=== PATIENT | female | born 1990 | race Caucasian/White ===

== ENCOUNTER → 2018-10-16 11:18 | Outpatient (CLI) | payer BC, OTHER, SELFPAY ==
[2018-10-16 11:40] LABS: Basophils % 0.1 % (0.1-2.0); Eosinophils % 0.5 % (0.1-12.0); Hematocrit 35.1 % (37.0-47.0); Hemoglobin 11.8 g/dL (12.2-16.2); Lymphocytes # 1.5 K/mm3 (0.7-4.5); Lymphocytes % 18.8 % (10-50); Mean Corpuscular HGB Conc 33.6 g/dL (31.8-35.4); Mean Corpuscular Hemoglobin 28.1 pg (27.0-31.2); Mean Corpuscular Volume 83.5 fl (81-99); Monocytes # 0.3 K/mm3 (0.1-1.0); Monocytes % 3.5 % (1.7-9.3); Neutrophils # 6.3 K/mm3 (1.8-7.8); Platelet Count 178 K/mm3 (142-424); Red Cell Distribution Width 14.4 % (11.5-17.5); White Blood Count 8.2 K/mm3 (4.8-10.8)
[2018-10-17 07:46] LABS: Hepatitis B Surface Antigen Negative (Negative); Hepatitis C Antibody <0.1 s/co ratio (0.0-0.9)
[2018-10-18 07:47] LABS: HIV Screen 4th Generation wRfx Non Reactive (Non Reactive); Rapid Plasma Reagin Ab Titer Non Reactive (NonRea<1:1); Rubella Antibodies, IgG <0.90 index (Immune >0.99)
== END ==
PROVIDERS: Visit Provider Nurse Practitioner Obstetrics & Gynecology
DX: Z34.90 Encounter for supervision of normal pregnancy, unspecified, unspecified trimester (principal)
CPT/HCPCS: 36415; 85025; 86592; 86703; 86762; 86850; 87340; 87380; G0432

== ENCOUNTER → 2018-10-24 13:49 | Outpatient (CLI) | payer BC, OTHER, SELFPAY ==
--- NOTE | 2018-10-24 13:55 | US_ITS ---
US OB transvaginal HISTORY: ITS.REASON: US OB Dates ORDERING PHYSICIAN: Ryan Spears MD PATIENT AGE: 28 years COMPARISON: None FINDINGS: An intrauterine gestational sac is present with a pole with a crown-rump length of 2.08cm correlating to gestational age of 8w5d. heart tones are present with an FHR of 154 bpm's. Yolk sac is noted. Adnexa: 1 cm left ovarian cyst. Small bilateral ovarian follicles. IMPRESSION: Live intrauterine gestation at 8 weeks 5 days as described above. Estimated due date by Ultrasound is 05/31/2019
== END ==
PROVIDERS: Visit Provider Nurse Practitioner Obstetrics & Gynecology
DX: O26.841 Uterine size-date discrepancy, first trimester (principal)
CPT/HCPCS: 76817

== ENCOUNTER → 2019-01-10 12:56 | Outpatient (CLI) | payer BC, OTHER, SELFPAY ==
--- NOTE | 2019-01-10 13:05 | US_ITS ---
US OB /maternal detail: INDICATION: ITS.REASON: US OB Complete ORDERING PHYSICIAN: Ryan Spears MD PATIENT AGE: 28 years TECHNIQUE: ultrasound transabdominal scanning. COMPARISON: No previous relevant studies. FINDINGS: Single viable intrauterine gestation. Cephalic position. Placenta: Anterior High placenta grade 1. There is average amount fluid. The cervix appears satisfactory. Closed and measuring 5 cm in length. Complete survey performed and was unremarkable on the submitted images as in PACS. No discrete anomalies identified on survey imaging by technologist. Active fetus. Three-vessel cord with satisfactory umbilical cord insertion. 4- chamber heart noted. Survey of brain & ventricles unremarkable. Face and neck survey unremarkable. Diaphragm and chest views unremarkable. Abdomen: Both kidneys noted and unremarkable. Stomach noted and satisfactory. Spine: Survey of the spine satisfactory with no anomalies identified nor imaged. Both arms and legs noted. Amniotic Fluid: Adequate. Maternal adnexa: No significant findings. Measurements: Average ultrasound age 20w0d. Gestational Age 19w6d. Estimated due date by ultrasound age 0905/30/2019. Estimated weight 321 grams. BPD = 20w0d OFD = 20w4d HC = 19w4d AC = 19w6d FL = 20w2d Growth Percentile= 29% Heart Rate = 152 Cerebellum = 20w3d Humerus = 20w5d HC/AC is 1.18 (1.09-1.26). CI is 75% (70-86%). FL/BPD is 71%. FL/AC is 23%. IMPRESSION: There is a single live fetus which is in cephalic presentation. Average ultrasound age is 20 weeks 0 days. All parameters correlate. heart motion noted with no obvious anomalies. Please see above for details
== END ==
PROVIDERS: Visit Provider Nurse Practitioner Obstetrics & Gynecology
DX: Z36.0 Encounter for antenatal screening for chromosomal anomalies (principal)
CPT/HCPCS: 76811

== ENCOUNTER → 2019-02-21 08:11 | Outpatient (CLI) | payer BC, OTHER, SELFPAY ==
[2019-02-21 09:23] LABS: Glucose,Fasting 103 mg/dL (60-105)
[2019-02-21 10:28] LABS: Glucose 1 Hour 154 mg/dL (74-106)
== END ==
PROVIDERS: Visit Provider Nurse Practitioner Obstetrics & Gynecology
DX: Z34.90 Encounter for supervision of normal pregnancy, unspecified, unspecified trimester (principal)
CPT/HCPCS: 36415; 82951

== ENCOUNTER → 2019-03-06 07:26 | Outpatient (CLI) | payer BC, OTHER, SELFPAY ==
[2019-03-06 09:08] LABS: Glucose,Fasting 91 mg/dL (60-105)
[2019-03-06 10:10] LABS: Glucose 1 Hour 111 mg/dL (74-106)
[2019-03-06 10:11] LABS: Glucose 2 Hour 114 mg/dL (74-106)
[2019-03-06 11:14] LABS: Glucose 3 Hour 85 mg/dL (74-106)
== END ==
PROVIDERS: Visit Provider Nurse Practitioner Obstetrics & Gynecology
DX: Z34.90 Encounter for supervision of normal pregnancy, unspecified, unspecified trimester (principal)
CPT/HCPCS: 36415; 82951

== ENCOUNTER → 2019-03-21 11:13 | Outpatient (CLI) | payer BC, OTHER, SELFPAY ==
[2019-03-22 13:06] LABS: Creatinine,Serum 0.51 mg/dL (0.55-1.02)
[2019-03-22 13:11] LABS: Creatinine,Serum 0.51 mg/dL (0.55-1.02)
[2019-03-22 13:12] LABS: Collection Time,Urine 24 hours; Creatinine 24 Hour,Urine 1053 mg/24hr (630-2500); Creatinine,Urine Random 81 mg/dL (20-320); Patient Height,Urine 62 inches; Patient Weight,Urine 181 lbs; Total Protein 24 Hour,Urine 148 mg/24 hr (40-90); Total Protein,Urine Random 11.4 mg/dL (0.0-11.9); Total Volume,Urine 1300 mL (600-1600)
== END ==
PROVIDERS: Visit Provider Nurse Practitioner Obstetrics & Gynecology
DX: O13.9 Gestational [pregnancy-induced] hypertension without significant proteinuria, unspecified trimester (principal); Z34.90 Encounter for supervision of normal pregnancy, unspecified, unspecified trimester
CPT/HCPCS: 82575; 84155

== ENCOUNTER → 2019-03-22 11:17 | Outpatient (CLI) | payer BC, OTHER, SELFPAY ==
[2019-03-22 11:38] LABS: Basophils % 0.2 % (0.1-2.0); Eosinophils # 0.1 K/mm3 (0.0-0.4); Hematocrit 29.4 % (37.0-47.0); Hemoglobin 9.5 g/dL (12.2-16.2); Lymphocytes # 1.2 K/mm3 (0.7-4.5); Lymphocytes % 18.5 % (10-50); Mean Corpuscular HGB Conc 32.2 g/dL (31.8-35.4); Mean Corpuscular Volume 83.9 fl (81-99); Mean Platelet Volume 9.7 fl (7.4-10.4); Monocytes # 0.3 K/mm3 (0.1-1.0); Monocytes % 3.9 % (1.7-9.3); Neutrophils % 76.4 % (37.0-80.0); Platelet Count 182 K/mm3 (142-424); Red Blood Count 3.51 M/mm3 (4.20-5.40); Red Cell Distribution Width 14.4 % (11.5-17.5); White Blood Count 6.5 K/mm3 (4.8-10.8)
[2019-03-22 12:29] LABS: Alanine Aminotransferase 16 U/L (12-78); Anion Gap 15.7 mEq/L (5-15); Aspartate Amino Transferase 6 U/L (15-37); Blood Urea Nitrogen 3 mg/dL (7-18); Calcium 8.8 mg/dL (8.5-10.1); Carbon Dioxide 22 mmol/L (21.0-32.0); Chloride 105 mmol/L (98-107); Creatinine,Serum 0.51 mg/dL (0.55-1.02); Estimated Glomerular Filt Rate 144 ml/min (>60); GFR (African American) 174 ML/MIN (>60); Glucose 92 mg/dL (74-106); Potassium 3.7 mmoL/L (3.5-5.1); Sodium 139 mmol/L (136-145); Uric Acid 4.7 mg/dL (2.6-7.2)
[2019-03-22 14:16] LABS: Fibrinogen 357 mg/dL (204-500); INR 0.94 (0.9-1.1); Prothrombin Time 9.8 seconds (9.4-11.8)
[2019-03-22 14:21] LABS: D-Dimer 425 ng/mL (0-400)
== END ==
PROVIDERS: Visit Provider Nurse Practitioner Obstetrics & Gynecology
DX: O13.9 Gestational [pregnancy-induced] hypertension without significant proteinuria, unspecified trimester (principal)
CPT/HCPCS: 36415; 80048; 84450; 84460; 84550; 85025; 85378; 85384; 85610; 85730

== ENCOUNTER 2019-03-31 13:39 | Outpatient (CLI) | payer BC, OTHER, SELFPAY ==
[2019-03-31 13:49] VITALS: BMI 32.9
[2019-03-31 14:04] VITALS: BP 130/80; PULSE 93; RESP 18; TEMP 36.7; O2SAT 97; BMI 32.9
[2019-03-31 14:09] VITALS: BP 130/80; PULSE 93; RESP 18; TEMP 36.7; O2SAT 97
[2019-03-31 14:18] LABS: Microscopic, Urine URINE MICROSCOPIC (MICROSCOPIC)
[2019-03-31 14:19] LABS: Appearance,Urine CLEAR (Clear); Bilirubin,Urine Negative (Negative); Blood, Urine Negative (Negative); Color,Urine YELLOW (Yellow); Glucose,Urine (UA) Negative (Negative); Ketones,Urine Negative (Negative); Leukocyte Esterase,Urine Negative (Negative); Nitrate,Urine Negative (Negative); PH,Urine 6.5 (5.0-8.5); Protein,Urine Negative (Negative); Specific Gravity, Urine <= 1.005 (1.005-1.030); Urobilinogen,Urine 0.2 EU/dl (0.2)
[2019-03-31 14:28] LABS: Amphetamine/Metha Screen,Urine Negative ng/mL (<1000); Barbiturates Screen,Urine Negative ng/mL (<200); Benzodiazepines Screen,Urine Negative ng/mL (<200); Cannabinoid Screen,Urine Negative ng/mL (<50); Cocaine Screen,Urine Negative ng/mL (<300); Methadone Screen,Urine Negative ng/mL (<300); Opiate Screen,Urine Negative ng/mL (<300); Phencyclidine Screen,Urine Negative ng/mL (<25)
[2019-03-31 14:29] LABS: Bacteria,Urine 1+ /lpf; WBC,Urine Occasional #/hpf (0-3)
[2019-03-31 14:51] LABS: Fetal Fibronectin (Rapid) Negative (Negative)
== END 2019-03-31 15:45 | disposition home or self-care (01) ==
LOC: OBOUT 13:41 → OB 13:43
PROVIDERS: PCP Nurse Practitioner Obstetrics & Gynecology; Visit Provider Obstetrics & Gynecology
DX: O47.03 False labor before 37 completed weeks of gestation, third trimester (principal); Z3A.31 31 weeks gestation of pregnancy
CPT/HCPCS: 59025; 80305; 81001; 82731

== ENCOUNTER → 2019-04-10 12:48 | Outpatient (CLI) | payer BC, OTHER, SELFPAY ==
--- NOTE | 2019-04-10 12:55 | US_ITS ---
US OB BPP w/Fet-Mat S/D: Indication: ITS.REASON: US OB- BPP Growth, S/D Ratio- Low fluid, leaking fluid ORDERING PHYSICIAN: Ryan Spears MD PATIENT AGE: 28 years FINDINGS: The following parameters are obtained: Average ultrasound age is 33w1d. Estimated due date by ultrasound is 05/28/2019. Estimated weight is 2087 grams. This is 48th percentile BPD: 33w0d OFD: 33w5d HC: 33w0d AC: 32w3d FL: 34w0d heart rate: 153 bpm. HC/AC: 1.05 (0.96-1.17) Cephalic index: 77% (70-86%) FL/BPD: 80% (71-87%) FL/AC: 23% (20-24%) Amniotic fluid index: 9 cm. Lower limits of normal Qualitative AFV: 2 breathing movements: 2 Gross body movements: 2 Tone: 2 Biophysical profile score: 8/8 Doppler evaluation of the umbilical artery: SD ratio: 3.8 Resistive index: 0.74 No obvious anomalies evident. Placenta: Anterior Cervix: Appears closed and measures 4 cm IMPRESSION: There is a single live fetus which is in cephalic presentation. Average ultrasound age is 33 weeks and 1 day with an estimated weight of 2087 g which is 48 percentile. All parameters correlate with no obvious anomalies identified. The placenta is anterior in implantation and grade 1. LOGAN is lower limits of normal at 9 cm. SD ratios greater than 95th percentile at 3.8 and the resistive index is at the 95th percentile marked. Biophysical profile is 8 of 8
== END ==
PROVIDERS: Visit Provider Nurse Practitioner Obstetrics & Gynecology
DX: O41.00X0 Oligohydramnios, unspecified trimester, not applicable or unspecified (principal)
CPT/HCPCS: 76819

== ENCOUNTER 2019-04-16 13:06 | Outpatient (CLI) | payer BC, OTHER, SELFPAY ==
[2019-04-16 13:24] VITALS: BMI 33.3
[2019-04-16 13:25] VITALS: BP 139/91; PULSE 95; RESP 18; TEMP 36.8; O2SAT 99; BMI 33.3
[2019-04-16 13:29] LABS: Microscopic, Urine URINE MICROSCOPIC (MICROSCOPIC)
[2019-04-16 13:35] LABS: Appearance,Urine CLEAR (Clear); Bilirubin,Urine Negative (Negative); Blood, Urine Negative (Negative); Color,Urine YELLOW (Yellow); Glucose,Urine (UA) Negative (Negative); Ketones,Urine Negative (Negative); Leukocyte Esterase,Urine TRACE (Negative); Nitrate,Urine Negative (Negative); Protein,Urine Negative (Negative); Specific Gravity, Urine <= 1.005 (1.005-1.030); Urobilinogen,Urine 0.2 EU/dl (0.2)
[2019-04-16 13:45] LABS: Amphetamine/Metha Screen,Urine Negative ng/mL (<1000); Barbiturates Screen,Urine Negative ng/mL (<200); Benzodiazepines Screen,Urine Negative ng/mL (<200); Cannabinoid Screen,Urine Negative ng/mL (<50); Cocaine Screen,Urine Negative ng/mL (<300); Methadone Screen,Urine Negative ng/mL (<300); Opiate Screen,Urine Negative ng/mL (<300); Phencyclidine Screen,Urine Negative ng/mL (<25)
[2019-04-16 14:14] LABS: Bacteria,Urine 1+ /lpf; WBC,Urine Occasional #/hpf (0-3)
[2019-04-16 14:32] LABS: Fetal Fibronectin (Rapid) Negative (Negative)
[2019-04-16 17:18] LABS: Basophils % 0.2 % (0.1-2.0); Eosinophils # 0.1 K/mm3 (0.0-0.4); Eosinophils % 0.9 % (0.1-12.0); Hematocrit 31.7 % (37.0-47.0); Hemoglobin 10.2 g/dL (12.2-16.2); Lymphocytes # 1.2 K/mm3 (0.7-4.5); Lymphocytes % 17.2 % (10-50); Mean Corpuscular HGB Conc 32.1 g/dL (31.8-35.4); Mean Corpuscular Hemoglobin 27.7 pg (27.0-31.2); Mean Corpuscular Volume 86.3 fl (81-99); Mean Platelet Volume 9.2 fl (7.4-10.4); Monocytes # 0.3 K/mm3 (0.1-1.0); Monocytes % 3.7 % (1.7-9.3); Neutrophils # 5.3 K/mm3 (1.8-7.8); Neutrophils % 77.9 % (37.0-80.0); Platelet Count 193 K/mm3 (142-424); Red Blood Count 3.67 M/mm3 (4.20-5.40); Red Cell Distribution Width 14.8 % (11.5-17.5); White Blood Count 6.7 K/mm3 (4.8-10.8)
[2019-04-16 17:38] LABS: Activated Partial Thrombo Time 24.1 seconds (23.6-34.0); Fibrinogen 402 mg/dL (204-500); INR 0.93 (0.9-1.1); Prothrombin Time 9.7 seconds (9.4-11.8)
[2019-04-16 17:40] LABS: Alanine Aminotransferase 13 U/L (12-78); Anion Gap 14.3 mEq/L (5-15); Aspartate Amino Transferase 5 U/L (15-37); Blood Urea Nitrogen 4 mg/dL (7-18); Calcium 8.8 mg/dL (8.5-10.1); Carbon Dioxide 24 mmol/L (21.0-32.0); Chloride 105 mmol/L (98-107); Creatinine Clearance Estimated 199 mL/min (50-200); Creatinine,Serum 0.55 mg/dL (0.55-1.02); Estimated Glomerular Filt Rate 132 ml/min (>60); GFR (African American) 159 ML/MIN (>60); Glucose 104 mg/dL (74-106); Potassium 3.3 mmoL/L (3.5-5.1); Sodium 140 mmol/L (136-145); Uric Acid 3.9 mg/dL (2.6-7.2)
[2019-04-16 18:57] LABS: D-Dimer 586 ng/mL (0-400)
== END 2019-04-16 18:20 | disposition home or self-care (01) ==
LOC: OBOUT 13:08 → OB 13:08
PROVIDERS: Visit Provider Nurse Practitioner Obstetrics & Gynecology
DX: O47.03 False labor before 37 completed weeks of gestation, third trimester (principal); Z3A.33 33 weeks gestation of pregnancy
CPT/HCPCS: 36415; 59025; 80048; 80305; 81001; 82731; 84450; 84460; 84550; 85025; 85378; 85384; 85610; 85730; 96360

== ENCOUNTER → 2019-04-25 13:51 | Outpatient (CLI) | payer BC, OTHER, SELFPAY ==
--- NOTE | 2019-04-25 14:25 | US_ITS ---
PROCEDURE: US OB BPP W/FET-MAT S/D CLINICAL INDICATION: US OB BPP Growth- low/leaking fluid FINDINGS: There is a single live fetus which is in cephalic presentation. heart and body motion noted with an FHR of 149. Biophysical profile is 8 of 8. breathing motion noted on today's study. Amniotic fluid index is 12 cm. Placenta is anterior and grade 2. Umbilical artery evaluation shows an SD ratio of 3.2 with a resistive index of 0.68. These are below 95th percentile. Average ultrasound age 35 weeks 2 days. Gestational Age 34 weeks 6 days Estimated due date by ultrasound age 905/28/2019. Estimated weight 2,672 ggrams. BPD = 35 weeks 3 days OFD = 34 weeks 6 days HC = 34 weeks 5 days AC = 35 weeks 5 days FL = 35 weeks 2 days Growth Percentile= 63 percent% Heart Rate = 149 bpm Cerebellum = Humerus = HC/AC is 0.97 CI is 0.8 FL/BPD is 0.78 FL/AC is 0.22 IMPRESSION: There is a single live fetus in cephalic presentation with an average ultrasound age of 35 weeks and 2 days. Biophysical profile is 8 of 8. Umbilical artery evaluation is unremarkable. Placenta is anterior and grade 2. Estimated weight is 2672 g which is 63rd percentile. Amniotic fluid index is normal at 12 cm Dictated by: Dany Mays MD 04/25/2019 16:22 Signed by: <Electronically signed by Dany Mays MD in [place]> 04/25/2019 16:22
== END ==
PROVIDERS: Visit Provider Nurse Practitioner Obstetrics & Gynecology
DX: O28.8 Other abnormal findings on antenatal screening of mother (principal)
CPT/HCPCS: 76819

== ENCOUNTER 2019-04-29 16:58 | Outpatient (CLI) | payer BC, OTHER, SELFPAY ==
[2019-04-29 17:09] VITALS: BP 132/89; PULSE 95; RESP 18; TEMP 36.8; O2SAT 99; BMI 32.5
== END 2019-04-29 17:56 | disposition home or self-care (01) ==
LOC: OBOUT 17:00 → OB 17:03
PROVIDERS: PCP Nurse Practitioner Obstetrics & Gynecology; Visit Provider Obstetrics & Gynecology
DX: O47.03 False labor before 37 completed weeks of gestation, third trimester (principal); Z3A.35 35 weeks gestation of pregnancy
CPT/HCPCS: 59025

== ENCOUNTER → 2019-04-30 16:56 | Outpatient (CLI) | payer BC, OTHER, SELFPAY | PROVIDERS: Visit Provider Nurse Practitioner Obstetrics & Gynecology | DX: Z34.90 Encounter for supervision of normal pregnancy, unspecified, unspecified trimester (principal) | CPT/HCPCS: 86403 ==

== ENCOUNTER 2019-05-06 00:46 | Outpatient (CLI) | payer BC, OTHER, SELFPAY ==
[2019-05-06 01:01] VITALS: BMI 33.0
[2019-05-06 01:20] VITALS: BP 139/100; PULSE 78; RESP 18; TEMP 37; O2SAT 98; BMI 33.0
[2019-05-06 01:32] LABS: Microscopic, Urine URINE MICROSCOPIC (MICROSCOPIC)
[2019-05-06 01:42] LABS: Appearance,Urine CLEAR (Clear); Bilirubin,Urine Negative (Negative); Blood, Urine Negative (Negative); Color,Urine YELLOW (Yellow); Glucose,Urine (UA) Negative (Negative); Ketones,Urine Negative (Negative); Leukocyte Esterase,Urine TRACE (Negative); Nitrate,Urine Negative (Negative); PH,Urine 6.5 (5.0-8.5); Protein,Urine Negative (Negative); Specific Gravity, Urine <= 1.005 (1.005-1.030); Urobilinogen,Urine 0.2 EU/dl (0.2)
[2019-05-06 01:48] LABS: Amphetamine/Metha Screen,Urine Negative ng/mL (<1000); Barbiturates Screen,Urine Negative ng/mL (<200); Benzodiazepines Screen,Urine Negative ng/mL (<200); Cannabinoid Screen,Urine Negative ng/mL (<50); Cocaine Screen,Urine Negative ng/mL (<300); Methadone Screen,Urine Negative ng/mL (<300); Opiate Screen,Urine Negative ng/mL (<300); Phencyclidine Screen,Urine Negative ng/mL (<25)
[2019-05-06 01:58] LABS: Fetal Membrane Rupture (Rapid) Negative (Negative)
== END 2019-05-06 02:22 | disposition home or self-care (01) ==
LOC: OBOUT 00:48 → OB 00:53
PROVIDERS: Referring Provider Nurse Practitioner Obstetrics & Gynecology; Visit Provider Obstetrics & Gynecology
DX: O47.03 False labor before 37 completed weeks of gestation, third trimester (principal); Z3A.36 36 weeks gestation of pregnancy
CPT/HCPCS: 59025; 80305; 81001; 84112; 87086

== ENCOUNTER 2019-05-27 02:50 | Inpatient (IN) ==
[2019-05-27 05:53] LABS: Microscopic, Urine URINE MICROSCOPIC (MICROSCOPIC)
[2019-05-27 05:59] LABS: Appearance,Urine CLEAR (Clear); Bilirubin,Urine Negative (Negative); Blood, Urine Negative (Negative); Color,Urine YELLOW (Yellow); Glucose,Urine (UA) Negative (Negative); Ketones,Urine Negative (Negative); Leukocyte Esterase,Urine 1+ (Negative); PH,Urine 6.5 (5.0-8.5); Protein,Urine Negative (Negative); Urobilinogen,Urine 0.2 EU/dl (0.2)
[2019-05-27 06:05] LABS: Basophils % 0.1 % (0.1-2.0); Eosinophils # 0.1 K/mm3 (0.0-0.4); Eosinophils % 1.2 % (0.1-12.0); Hematocrit 31.8 % (37.0-47.0); Hemoglobin 10.1 g/dL (12.2-16.2); Lymphocytes # 1.9 K/mm3 (0.7-4.5); Lymphocytes % 24.7 % (10-50); Mean Corpuscular HGB Conc 31.7 g/dL (31.8-35.4); Mean Corpuscular Volume 85.9 fl (81-99); Mean Platelet Volume 9.5 fl (7.4-10.4); Monocytes # 0.4 K/mm3 (0.1-1.0); Monocytes % 4.6 % (1.7-9.3); Neutrophils # 5.3 K/mm3 (1.8-7.8); Neutrophils % 69.3 % (37.0-80.0); Platelet Count 210 K/mm3 (142-424); Red Cell Distribution Width 15.4 % (11.5-17.5); White Blood Count 7.7 K/mm3 (4.8-10.8)
[2019-05-27 06:07] LABS: Amphetamine/Metha Screen,Urine Negative ng/mL (<1000); Barbiturates Screen,Urine Negative ng/mL (<200); Benzodiazepines Screen,Urine Negative ng/mL (<200); Cannabinoid Screen,Urine Negative ng/mL (<50); Cocaine Screen,Urine Negative ng/mL (<300); Methadone Screen,Urine Negative ng/mL (<300); Opiate Screen,Urine Negative ng/mL (<300); Phencyclidine Screen,Urine Negative ng/mL (<25)
[2019-05-27 06:32] LABS: Bacteria,Urine Trace /lpf; WBC,Urine Occasional #/hpf (0-3)
--- NOTE | 2019-05-27 08:03 | Progress Note ---
[facility] Anesthesia Checklist - Patient Identification Patient Identification: Arm Band, Verbal (Name & ) - Structural Data Admitted From: Home Planned Operative Procedure/s: Labor Epidural Consent for Planned Operative Procedure(s) Verified: Yes Verified Documents: Surgical Consent, History and Physical - Chart Verification Results Verified: CBC, BMP - Additional verifications Patient : Yes Anesthesia Reactions: No - Airway Assessment C-Spine Mobility Assessed: Yes TMJ Mobility Assessed: Yes Dentition: Poor Dentition - Neurological Assessment Level of Consciousness: Awake, Alert, Appropriate, Follows Commands Hx Seizures: No Numbness or tingling in extremities: No - Anesthesia Plan Anesthesia Risk discussed: Yes Anesthesia Plan: Verified ASA Class: II Anesthesia Type: Epidural [facility] History I have reviewed the patient's past medical history: Yes Medical History: Denies:: Anxiety, Asthma, Depression, Diabetes Mellitus Type 1, H yperlipidemia, Hypertension, Seizures *Have you ever received a pneumonia vaccine?: No *Have you received a flu vaccine this season?: No Comment:: induced HTN, anemia Anesthesia experience/problems:: no prior complications Other Surgeries: No: Amputation: No Fractures: No - *Social History Smoking Status: Never smoker Alcohol Intake: never Substance Use Type: denies use *Occupational Status:: unemployed *Travel in the last 8 weeks: None - Psychiatric History Pschychiatric History:: Denies:: Anxiety, Depression Family Hx:: Diabetes, Heart Attack, Hyperlipidemia, Stroke Para: 4
--- NOTE | 2019-05-27 08:24 | Progress Note ---
Labor Note - Subjective: Date: 05/27/19 Time: 07:20 regular contraction - Objective: NST:: Reactive Contractions:: every 2-3 minutes Cervical Dilation:: 2-3 Effacement:: 50% Station: -2 Membranes: artificially ruptured Comment:: I ruptured her membranes and there was clear fluid. - Fetus: Monitoring?: Yes monitoring type:: External - Assessment: Labor progressing?: Yes Cephalopelvic disproportion?: No Patient Problems: All Active Problems Gestational hypertension (Acute) (Acute) - Plan: Anesthesia for epidural?: No Continue to labor down?: Yes Plan for ?: No Continue to monitor?: Yes Start pushing?: No
--- NOTE | 2019-05-27 08:27 | History & Physical Report ---
OB - H&P: HPI Antepartum - History of Present Illness Chief complaint: Term , pressure History of present illness: She is a 28-year-old lady who complains of labor since about 34 weeks. She has consistent pressure and severe discomfort. As result of that we have elected to augment her labor at term. - History of Present Criteria for establishing EDC:: LMP confirmed by 1st trimester US care: good care Ultrasounds: normal 1st trimester US, normal mid trimester US Obstetrical complications: labor Medical complications: none [facility] History I have reviewed the patient's past medical history: Yes Medical History: Denies:: Anxiety, Asthma, Depression, Diabetes Mellitus Type 1, Hyperlipidemia, Hypertension, Seizures *Have you ever received a pneumonia vaccine?: No *Have you received a flu vaccine this season?: No Anesthesia experience/problems:: no prior complications Other Surgeries: No: Amputation: No Fractures: No - *Social History Smoking Status: Never smoker Alcohol Intake: never Substance Use Type: denies use *Occupational Status:: unemployed *Travel in the last 8 weeks: None - Psychiatric History Pschychiatric History:: Denies:: Anxiety, Depression Family Hx:: Diabetes, Heart Attack, Hyperlipidemia, Stroke Para: 4 Review of Systems - Review of Systems Review of systems:: pertinent systems reviewed and negative unless documented below Meds Home Medications Medication Instructions Recorded Confirmed Type Ferrous Sulfate 325 mg PO DAILY 03/31/19 05/27/19 History Labetalol HCl 200 mg PO BID 03/31/19 05/27/19 History Vit Calc,Iron,Folic [Kpn] 1 tab PO DAILY 03/31/19 05/27/19 History ondansetron 4 mg disintegrating 4 mg PO Q4H PRN #30 tab 04/23/19 05/27/19 Rx tablet Allergies Allergy/AdvReac Type Severity Reaction Status Date / Time Penicillins Allergy Mild Verified 05/21/19 15:43 OB - H&P: Exam - Physical Exam Vital signs: Temp Pulse Resp BP Pulse Ox 97.7 F 82 18 138/106 H 99 05/27/19 06:03 05/27/19 06:03 05/27/19 06:03 05/27/19 06:03 05/27/19 06:03 - Constitutional no acute distress - Routine HEENT Exam Head: Present: normocephalic Eye: Present: EOMI, PERRL ENT: Present: mucous membranes moist - Routine Neck Exam Present: supple, full ROM - Routine Respiratory Exam Absent: accessory muscle use (good air entry bilaterally), respiratory distress, wheezes, crackles - Routine Cardiovascular Exam Present: RRR. Absent: murmur - Routine Abdominal Exam Present: soft, normoactive bowel sounds. Absent: tenderness, distended, guarding - Routine Rectal Exam Patient deferred: visual exam, digital exam - Routine Exam Patient deferred: external exam, groin exam, perineal exam - Routine Extremities Exam Present: full ROM. Absent: cyanosis, edema - Routine Skin Exam Present: intact. Absent: cyanosis - Routine Neurological Exam Present: alert, oriented X3 - Routine Psychiatric Exam Present: normal affect OB - Results - Labs Labs: Short CBC 05/27/19 Range/Units 05:40 WBC 7.7 (4.8-10.8) K/mm3 Hgb 10.1 L (12.2-16.2) g/dL Hct 31.8 L (37.0-47.0) % Plt Count 210 (142-424) K/mm3 Urine 05/27/19 Range/Units 05:40 Urine Color Yellow (Yellow) Urine Appearance Clear (Clear) Urine pH 6.5 (5.0-8.5) Ur Specific [place] 1.010 (1.005-1.030) Urine Protein Negative (Negative) Urine Glucose (UA) Negative (Negative) OB - A/P Antepartum (1) Normal delivery Current visit: Yes Status: Acute (2) Gestational hypertension Current visit: No Status: Acute - Additional Plan Planning to breastfeed?: Yes Plan: other Additional Information:: We are augmenting her labor with oxytocin. She is having regular contractions. Her cervix is 2 to 3 cm. She has had 2 previous vaginal deliveries. We expect another vaginal delivery.
--- NOTE | 2019-05-27 09:27 | Progress Note ---
Labor Note - Subjective: Date: 05/27/19 Time: 09:26 regular contraction - Objective: NST:: Reactive Contractions:: every 2-3 minutes Cervical Dilation:: 5-6 Effacement:: 90% Station: 0 Membranes: artificially ruptured - Fetus: Monitoring?: Yes monitoring type:: External - Assessment: Labor progressing?: Yes Cephalopelvic disproportion?: No Patient Problems: All Active Problems Normal delivery (Acute) Gestational hypertension (Acute) (Acute) - Plan: Anesthesia for epidural?: Yes Continue to labor down?: Yes Plan for ?: No Continue to monitor?: Yes Start pushing?: No
--- NOTE | 2019-05-27 10:10 | Procedure Note ---
- Delivery Note Delivery Date:: 05/27/19 Delivery Time:: 09:59 Anesthesia Type: Epidural Was labor medically induced?: Yes Induction method: per pitocin protocol Gestational age (weeks): 39 Infant delivered prior to 39 weeks?: No Justification for early elective delivery:: Benign Hypertension Gender: Female at 1 minute: 9 at 5 minutes: 10 AF:: Clear fluid Delivery Procedure:: She is a 28-year-old 8 para 4 aborta 3 who is 39 and 3 weeks gestational age. She has had some increase in her blood pressure and labor throughout the . As result that we elected to bring her in for augmentation. She was started on IV oxytocin and had her membranes ruptured. Under labor epidural she progressed to full dilation and delivered spontaneously a liveborn female child at 9:59 AM on the morning of May 27, 2019. On deliver the head it was noted that there was a loose nuchal cord which was easily reduced. This was followed by the rest the infant's body atraumatically. The baby cried spontaneously. The oropharynx and nasopharynx were bulb suction. We allowed the cord to continue to pulsate for approximately 1 minute. The cord was then doubly clamped and cut. The infant was then placed on the mother's abdomen for further care. The nurses assigned Apgars of 9 at 1 minute and 10 at 5 minutes. We then obtained cord blood as well as cord pH. She received IV oxytocin using gentle traction on the cord and countertraction the fundus I was able to easily deliver the placenta intact at 10:03. She had a normal three-vessel cord. There were no perineal or vaginal lacerations. She has O+ blood, she is rubella non-immune and was group B streptococcus negative. She plans to breast-feed. 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 Estimated blood loss was approximately 150 cc. Placental Delivery Description: Spontaneous
[2019-05-28 07:18] LABS: Hematocrit 24.7 % (37.0-47.0)
--- NOTE | 2019-05-28 08:13 | Progress Note ---
Internal Medicine - PN: Subj *Date: 05/28/19 *Time: 08:12 Interval history: She continues to do well this morning. She is eating and drinking and ambulating. Her hemoglobin is slightly low at 8.0 but she is completely asymptomatic. She is breast-feeding. Her lochia is normal. Exam Vital signs and Labs for Last 24 Hours: Temp Pulse Resp BP Pulse Ox 97.7 F 82 18 138/106 H 99 05/27/19 06:03 05/27/19 06:03 05/27/19 06:03 05/27/19 06:03 05/27/19 06:03 Laboratory Results - last 24 hr 05/27/19 10:13: Cord ABG pH 7.39 05/28/19 05:53: Hgb 8.0 L, Hct 24.7 L I & O for Last 24 hours: Intake & Output 05/25/19 05/26/19 05/27/19 05/28/19 11:59 11:59 11:59 11:59 Weight 182 lb Microbiology Reports for the Last 24 Hours: Microbiology 05/27/19 05:40 Urine,Clean Catch Urine Culture - Preliminary - Constitutional no acute distress Assessment and Plan (1) Normal delivery Current visit: Yes Status: Acute Category: Medical Code(s): O80 - Encounter for full-term uncomplicated delivery (2) Gestational hypertension Current visit: No Status: Acute Qualifiers: Trimester: third trimester Qualified Code(s): O13.3 - Gestational [-induced] hypertension without significant proteinuria, third trimester Category: Medical Code(s): O13.9 - Gestational [-induced] hypertension without significant proteinuria, unspecified trimester (3) anemia Current visit: Yes Status: Acute Category: Medical Code(s): O90.81 - Anemia of the puerperium - Assessment and plan all Dx Assessment and Plan for all problems:: She continues to do well. We will give her Depo-Provera today. We will plan to send her home tomorrow. She will take iron and vitamins when she goes home.
--- NOTE | 2019-05-29 10:11 | Discharge Summary ---
General - General Admission date:: 05/27/19 Discharge date: 05/29/19 HPI HPI: She is a 28-year-old 8 now para 5 aborta 3 who was 39 and 3 weeks gestational age. She was having some slightly increased issues with blood pressure as well as labor. As result of that we elected to augment her labor at term. Hospital Course Hospital Course: He was started on IV oxytocin had her membranes ruptured. She progressed under labor epidural to full dilation and delivered spontaneously a liveborn female child at 9:59 AM on the morning of May 27, 2019. The baby weighed 7 pounds 3 ounces, was 19-1/2 inches long and had Apgars of 9 at 1 minute and 10 at 5 minutes. She has done well and has remained afebrile throughout her hospitalization. Her hemoglobin was slightly low at 8.0. She only started out at 10.1. She has O+ blood, she is rubella nonimmune and received MMR prior to discharge. She is group B strep to coccus negative. 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 . She is discharged home to follow-up with me in approximate 2 weeks time. She will continue with her vitamins and iron. She is taking [id number] analgesics. Condition on discharge is stable. She is given usual instructions with respect to eating her activity, driving and sexual activity. Rhogam Administration: Not Indicated Objective Vital signs: Temp Pulse Resp BP Pulse Ox 97.5 F L 87 16 141/93 H 99 05/28/19 16:00 05/28/19 16:00 05/28/19 16:00 05/28/19 16:00 05/28/19 16:00 no acute distress DS: Diagnosis - Discharge Diagnosis (1) Normal delivery Status: Acute (2) Gestational hypertension Status: Acute (3) anemia Status: Acute Discharge Plan - Patient Discharge Instructions ACTIVITY: No heavy lifting DIET: continue same diet Additional Instructions: NOTHING IN VAGINA FOR 6 WEEKS NO HEAVY LIFTING Patient Instructions: Depression, Hemorrhage, [facility] Post Discharge Instructions - Follow up Plan Follow up with: Ryan Spears MD [Staff Physician] - 06/10/19 2:45 pm Disposition: Home, Self-Residential Medications: Home Medications Medication Instructions Recorded Confirmed Type Ferrous Sulfate 325 mg PO DAILY 03/31/19 05/27/19 History Labetalol HCl 200 mg PO BID 03/31/19 05/27/19 History Vit Calc,Iron,Folic [Kpn] 1 tab PO DAILY 03/31/19 05/27/19 History Ondansetron [Zofran 4mg ODT] 4 mg PO Q4HP PRN 05/27/19 05/27/19 History Prescriptions/Medication Reconciliation: Continued Labetalol HCl 200 mg PO BID Vit Calc,Iron,Folic [Kpn] 1 tab PO DAILY Ferrous Sulfate 325 mg PO DAILY Ondansetron [Zofran 4mg ODT] 4 mg PO Q4HP PRN PRN Reason: nausea and vomiting - Problem Reconciliation Problems Reviewed?: Yes
[2019-05-29 11:30] VITALS: BP 133/78
== END 2019-05-29 10:50 | disposition home or self-care (01) | DRG 807 ==
LOC: OB 05:08
PROVIDERS: ADMIT Nurse Practitioner Obstetrics & Gynecology; ATTEND Nurse Practitioner Obstetrics & Gynecology
CPT/HCPCS: J1050